=== PATIENT | female | born 1960 | race Caucasian/White ===

== ENCOUNTER 2019-12-10 16:45 | Emergency (ER) | payer BC ==
[~2019-12-10] VITALS: Ht 167.6 cm; Wt 114.3 kg
--- NOTE | 2019-12-10 16:45 | NUR ---
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
--- NOTE | 2019-12-10 16:50 | NUR ---
PT SEEN AND EXAMINED BY .
--- NOTE | 2019-12-10 17:00 | NUR ---
IV LINE ESTABLISHED, BLOOD DRAWN AND SENT TO LAB.
[2019-12-10 17:11] LABS: BASOPHILS # (AUTO) 0.1 /CMM (0.0-0.2); BASOPHILS % (AUTO) 0.8 % (0.0-2.0); EOSINOPHILS % (AUTO) 3.1 % (0.0-6.0); HEMATOCRIT 50 % (33-45); HEMOGLOBIN 16.3 g/dL (11.5-14.8); LYMPHOCYTES # (AUTO) 1.9 /CMM (0.8-4.8); LYMPHOCYTES % (AUTO) 28.2 % (20.0-44.0); MEAN CORPUSCULAR HGB CONC 33 g/dl (31.0-36.0); MEAN CORPUSCULAR VOLUME 88 fL (82-100); MONOCYTES # (AUTO) 0.3 /CMM (0.1-1.30); MONOCYTES % (AUTO) 4.4 % (2.0-12.0); NEUTROPHILS # (AUTO) 4.3 /CMM (1.8-8.9); NEUTROPHILS % (AUTO) 63.5 % (43.0-81.0); PLATELET COUNT (AUTO) 184 /CMM (150-450); RED BLOOD CELL COUNT(AUTO) 5.68 MIL/uL (4.0-5.2); WHITE BLOOD COUNT (AUTO) 6.8 K/uL (4.3-11.0)
--- NOTE | 2019-12-10 17:18 | NUR ---
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
[2019-12-10 17:22] LABS: CALCIUM, SERUM 9.2 mg/dL (8.5-10.1); CARBON DIOXIDE 28 mmol/L (21-32); CHLORIDE 104 mmol/L (98-107); CREATININE 0.7 mg/dL (0.6-1.3); GLUCOSE 142 mg/dL (74-106); POTASSIUM 3.9 mmol/L (3.5-5.1); SODIUM SERUM 141 mmol/L (136-145); UREA NITROGEN, BLOOD 13 mg/dL (7-18)
[2019-12-10] MEDS ORDERED: IV NS 0.9% 1,000 ML BAG IV ONE (17:30)
[2019-12-10] MEDS ORDERED: CT SWABBABLE VALVE TRANS SET 1 EA INFUS.SET MC ONE (17:35)
[2019-12-10] MEDS ORDERED: IOHEXOL-350 100 ML VIAL IV ONE (17:35)
[2019-12-10] MEDS ORDERED: IV NS 0.9% 250 ML IV ONE (17:35)
--- NOTE | 2019-12-10 17:48 | NUR ---
PT IS WHEELED TO CT SCAN VIA [facility].
[2019-12-10] MEDS ORDERED: LANS30CA56 PO (18:29)
[2019-12-10] MEDS ORDERED: HYDR-3976 PO (18:29)
[2019-12-10] MEDS ORDERED: IBUP200C5 PO (18:29)
[2019-12-10] MEDS ORDERED: SIME125C PO (18:29)
[2019-12-10] MEDS ORDERED: ONDA8TAB6 PO (18:29)
[2019-12-10] MEDS ORDERED: METF-442 PO (18:29)
[2019-12-10] MEDS ORDERED: TOPI50TA24 PO (18:29)
[2019-12-10] MEDS ORDERED: HYDR-500 PO (18:29)
[2019-12-10] MEDS ORDERED: MULT-447 PO (18:29)
[2019-12-10] MEDS ORDERED: CHOL100040 PO (18:29)
[2019-12-10] MEDS ORDERED: EZET1TAB37 PO (18:29)
[2019-12-10] MEDS ORDERED: FERR1TAB90 PO (18:29)
[2019-12-10] MEDS ORDERED: METH500T6 PO (18:29)
[2019-12-10] MEDS ORDERED: [UNRECOGNIZED DRUG - OTHER] PO (18:29)
[2019-12-10] MEDS ORDERED: FLUO10CA27 PO (18:29)
[2019-12-10] MEDS ORDERED: DIAZ10TA PO (18:30)
[2019-12-10 18:37] VITALS: BP 145/87
--- NOTE | 2019-12-10 18:37 | NUR ---
IV removed. Catheter intact and site benign. Pressure and 4x4 applied to site. No bleeding noted. Patient discharged to home in stable condition. Written and verbal after care instructions given. Patient verbalizes understanding of instruction.
== END 2019-12-10 18:38 | disposition home or self-care (01) ==
LOC: ER 16:48
DX: R00.2 Palpitations (principal); E86.0 Dehydration; R00.0 Tachycardia, unspecified; I10 Essential (primary) hypertension; Z98.890 Other specified postprocedural states
CPT/HCPCS: 36415; 71045; 71275; 80048; 84484; 85025; 93005 ×3; 96360; 99285; J7030; J7050; Q9967

== ENCOUNTER 2021-10-04 18:04 | Emergency (ER) | payer BC ==
[~2021-10-04] VITALS: Ht 167.6 cm; Wt 103.9 kg
[~2021-10-04 18:04] MED LIST: CHOL100040 PO; DIAZ10TA PO; EZET1TAB37 PO; FERR1TAB90 PO; FLUO10CA29 PO; HYDR-3976 PO; HYDR-500 PO; IBUP200C5 PO; LANS30CA56 PO; METF-442 PO; METH500T6 PO; MULT-447 PO; ONDA8TAB6 PO; SIME125C PO; TOPI50TA24 PO; [UNRECOGNIZED DRUG - OTHER] PO
--- NOTE | 2021-10-04 18:10 | NUR ---
JONATHAN THIS 61YO/F VIA STRETCHER. CAME WITH CHIEF COMPLAINT OF NAUSEA AND VOMITING. PLACED ON ROOM 4 COMFORTABLE. WAITING TO BE SEEN BY
[2021-10-04] MEDS ORDERED: IV NS 0.9% 1,000 ML BAG IV ONE (19:00)
[2021-10-04] MEDS ORDERED: ONDANSETRON HCL/PF 4 MG/2 ML VIAL IVP ONE (19:00)
--- NOTE | 2021-10-04 19:00 | NUR ---
IV CANNULA INSERTED LEFT FOREARM USING G20. BLOOD DRAWN AND SENT TO LAB.
--- NOTE | 2021-10-04 19:00 | NUR ---
IVF OF 0.9NS 1L BOLUS STARTED. ZOFRAN GIVEN VIA IV
--- NOTE | 2021-10-04 19:01 | NUR ---
SEEN BY BRENNA MENDIOLA WITH ORDERS TO BE CARRIED OUT
[2021-10-04] MEDS ORDERED: ONDANSETRON HCL/PF 4 MG/2 ML VIAL ONE (19:02)
--- NOTE | 2021-10-04 19:23 | NUR ---
PATIENT WHEELED TO CT DEPARTMENT FOR HEAD CT VIA STRETCHER
[2021-10-04 19:25] VITALS: BP 149/74
[2021-10-04] MEDS ORDERED: PROCHLORPERAZINE EDISYLATE 10 MG/2 ML VIAL IVP ONE (19:30)
[2021-10-04] MEDS ORDERED: MORPHINE SULFATE INJ 4 MG/ML DISP.SYRIN IV ONE (19:30)
[2021-10-04] MEDS ORDERED: PROCHLORPERAZINE EDISYLATE 10 MG/2 ML VIAL ONE (19:40)
[2021-10-04] MEDS ORDERED: MORPHINE SULFATE INJ 4 MG/ML DISP.SYRIN ONE (19:41)
[2021-10-04 20:00] LABS: BASOPHILS % (AUTO) 0.2 % (0.0-2.0); EOSINOPHILS % (AUTO) 0.6 % (0.0-6.0); HEMATOCRIT 48 % (33-45); HEMOGLOBIN 16.1 g/dL (11.5-14.8); LYMPHOCYTES # (AUTO) 1.5 K/uL (0.8-4.8); LYMPHOCYTES % (AUTO) 13.6 % (20.0-44.0); MEAN CORPUSCULAR HGB CONC 34 g/dl (31.0-36.0); MEAN CORPUSCULAR VOLUME 88 fL (82-100); MONOCYTES # (AUTO) 0.5 K/uL (0.1-1.30); MONOCYTES % (AUTO) 4.1 % (2.0-12.0); NEUTROPHILS # (AUTO) 9.2 K/uL (1.8-8.9); NEUTROPHILS % (AUTO) 81.5 % (43.0-81.0); PLATELET COUNT (AUTO) 156 K/uL (150-450); RED BLOOD CELL COUNT(AUTO) 5.43 MIL/uL (4.0-5.2); WHITE BLOOD COUNT (AUTO) 11.3 K/uL (4.3-11.0)
[2021-10-04 20:08] LABS: ALBUMIN 3.4 g/dL (3.4-5.0); BILIRUBIN,DIRECT 0.1 mg/dL (0.0-0.2); BILIRUBIN,TOTAL 0.6 mg/dL (0.2-1.0); CALCIUM, SERUM 9.5 mg/dL (8.5-10.1); CREATININE 0.5 mg/dL (0.6-1.3); POTASSIUM 4.5 mmol/L (3.5-5.1); TOTAL PROTEIN, SERUM 7.3 g/dL (6.4-8.2)
--- NOTE | 2021-10-04 20:58 | NUR ---
URINE SAMPLE SENT TO LAB
[2021-10-04] MEDS ORDERED: KETOROLAC TROMETHAMINE INJ 30 MG/ML VIAL IV ONE (21:00)
[2021-10-04] MEDS ORDERED: KETOROLAC TROMETHAMINE 15 MG/ML VIAL ONE (21:06)
[2021-10-04 21:42] LABS: BILIRUBIN,URINE NEGATIVE (NEGATIVE); COLOR,URINE YELLOW (YELLOW); LEUKOCYTE ESTERASE ,URINE NEGATIVE (NEGATIVE); NITRITE, URINE NEGATIVE (NEGATIVE); PH,URINE 6.5 (5.0-8.0); PROTEIN,URINE NEGATIVE (NEGATIVE); UGLUCOSE NEGATIVE (NEGATIVE); UROBILINOGEN,URINE 0.2 EU/dL (0.2)
[2021-10-04] MEDS ORDERED: PROC10TA13 PO (22:07)
--- NOTE | 2021-10-04 22:28 | NUR ---
Patient discharged to home in stable condition. Written and verbal after care instructions given. Patient verbalizes understanding of instruction. IV removed. Catheter intact and site benign. Pressure and 4x4 applied to site. No bleeding noted.
== END 2021-10-04 22:29 | disposition home or self-care (01) ==
LOC: ER 18:10
DX: R51.9 Headache, unspecified (principal); R11.2 Nausea with vomiting, unspecified; G89.29 Other chronic pain; R10.9 Unspecified abdominal pain; E11.65 Type 2 diabetes mellitus with hyperglycemia; E86.0 Dehydration; E66.9 Obesity, unspecified; Z68.37 Body mass index [BMI] 37.0-37.9, adult; E78.5 Hyperlipidemia, unspecified; M79.7 Fibromyalgia; F32.A Depression, unspecified; M19.90 Unspecified osteoarthritis, unspecified site; F12.90 Cannabis use, unspecified, uncomplicated; Z98.890 Other specified postprocedural states; Z91.018 Allergy to other foods; Z79.899 Other long term (current) drug therapy; Z79.84 Long term (current) use of oral hypoglycemic drugs
CPT/HCPCS: 36415; 70450; 80048; 80076; 81003; 83690; 85025; 96361; 96374; 96375; 99284; J0780; J1885; J2270; J2405; J7030